=== PATIENT | female | born 1995 | race Caucasian/White ===

== ENCOUNTER 2019-02-01 20:04 | Emergency (ER) | payer MEDICAID ==
[~2019-02-01] VITALS: Ht 170.2 cm; Wt 86.0 kg
[2019-02-01 20:09] VITALS: BP 127/76
[2019-02-01] MEDS ORDERED: PENI500T2 PO (20:36)
[2019-02-01] MEDS ORDERED: IBUP-1984 PO (20:36)
[2019-02-01] MEDS ORDERED: traMADol 50MG tablet PO ONE (20:40)
== END 2019-02-01 20:47 | disposition home or self-care (01) ==
LOC: ER 20:04
DX: S02.5XXA Fracture of tooth (traumatic), initial encounter for closed fracture (principal); K04.7 Periapical abscess without sinus; Z90.49 Acquired absence of other specified parts of digestive tract; Z88.5 Allergy status to narcotic agent; Z87.442 Personal history of urinary calculi; X58.XXXA Exposure to other specified factors, initial encounter; Y93.89 Activity, other specified; Y92.89 Other specified places as the place of occurrence of the external cause; Y99.9 Unspecified external cause status
CPT/HCPCS: 99283

== ENCOUNTER 2021-06-25 21:25 | Emergency (ER) | payer MEDICAID ==
[~2021-06-25] VITALS: Ht 170.2 cm; Wt 90.9 kg
[~2021-06-25 21:25] MED LIST: NO HOME MEDS
[2021-06-26 03:01] LABS: URINE HCG NEGATIVE (NEG)
[2021-06-26 03:09] LABS: ALANINE AMINOTRANSFERASE 17 U/L (12-78); ALKALINE PHOSPHATASE 94 IU/L (46-116); ANION GAP 8 (8-16); ASPARTATE AMINO TRANSFERASE 16 U/L (10-37); BILIRUBIN,TOTAL 0.3 MG/DL (0.1-1.0); BLOOD UREA NITROGEN 11 MG/DL (7-18); BUN/CREATININE RATIO 16.7 (6.6-38.0); CALCIUM 9.2 MG/DL (8.5-10.1); CHLORIDE 104 MMOL/L (99-107); CREATININE 0.66 MG/DL (0.40-0.90); GLUCOSE 103 MG/DL (70-104); POTASSIUM 3.8 MMOL/L (3.5-5.1); SODIUM 138 MMOL/L (135-145); TOTAL CARBON DIOXIDE 26.5 MMOL/L (24-32); TOTAL PROTEIN 8.1 G/DL (6.4-8.2); eGFR > 90 ML/MIN
[2021-06-26 03:12] LABS: EOSINOPHILS # (AUTO) 0.1 X10'3 (0-0.9); MONOCYTES # (AUTO) 0.6 X10'3 (0-0.9); RED BLOOD COUNT 5.55 X10'6 (4.20-5.60)
[2021-06-26 03:14] LABS: BASOPHILS % (AUTO) 0.6 % (0-1); EOSINOPHILS % (AUTO) 0.9 % (0-6); HEMATOCRIT 35.2 % (35.0-45.0); HEMOGLOBIN 11.2 g/dl (12.0-16.0); LYMPHOCYTES % (AUTO) 17.4 % (21-51); MEAN CORPUSCULAR HEMOGLOBIN 20.1 PG (27.0-31.0); MEAN CORPUSCULAR HGB CONC 31.8 g/dL (33.0-36.5); MEAN CORPUSCULAR VOLUME 63.4 FL (78-98); MEAN PLATELET VOLUME 8.7 FL (7.4-10.4); MONOCYTES % (AUTO) 10.3 % (2-12); NEUTROPHILS # (AUTO) 4.1 X10'3 (1.8-7.7); NEUTROPHILS % (AUTO) 70.8 % (42-75); PLATELET COUNT 289 X10'3 (140-440); RED CELL DISTRIBUTION WIDTH 18.5 % (11.5-14.5); WHITE BLOOD COUNT 5.8 X10'3 (4.5-11.0)
[2021-06-26 03:56] LABS: ANISOCYTOSIS 2+; MICROCYTOSIS 2+; PLATELET ESTIMATE NORMAL
[2021-06-26 03:57] LABS: ELLIPTOCYTES 1+
[2021-06-26] MEDS ORDERED: CLIN300C63 PO (06:17)
[2021-06-26] MEDS ORDERED: clindamycin 150mg capsule PO ONE (06:20)
[2021-06-26 07:03] VITALS: BP 110/74
--- NOTE | 2021-06-26 15:46 | NUR ---
Patient called regarding rx not being sent to pharmacy. Patient requested to call in prescription to [facility] on [address]. Antibiotic prescriptions called in to pharmacist. patient aware.
== END 2021-06-26 07:04 | disposition home or self-care (01) ==
LOC: ER 21:30
DX: L03.221 Cellulitis of neck (principal); Z87.81 Personal history of (healed) traumatic fracture; Z86.14 Personal history of Methicillin resistant Staphylococcus aureus infection; Z88.5 Allergy status to narcotic agent; Z88.8 Allergy status to other drugs, medicaments and biological substances
CPT/HCPCS: 36415; 70486; 80053; 81025; 83605; 85008; 85025; 99284

== ENCOUNTER 2021-06-26 21:39 | Emergency (ER) | payer MEDICAID ==
[~2021-06-26] VITALS: Ht 170.2 cm; Wt 90.9 kg
[~2021-06-26 21:39] MED LIST changes: +CLIN300C63 PO
[2021-06-26 21:58] VITALS: BP 125/80
== END 2021-06-27 04:17 | disposition left against medical advice (07) ==
LOC: ER 21:40
DX: H60.12 Cellulitis of left external ear (principal); Z53.21 Procedure and treatment not carried out due to patient leaving prior to being seen by health care provider

== ENCOUNTER 2023-08-19 11:00 | Emergency (ER) | payer MEDICAID ==
[~2023-08-19] VITALS: Ht 170.2 cm; Wt 99.8 kg
[~2023-08-19 11:00] MED LIST changes: -CLIN300C63 PO; +NAPR-56 PO
[2023-08-19 11:01] VITALS: BP 123/76; PULSE 83; TEMP 97.9; O2SAT 99
[2023-08-19 12:40] LABS: URINE HCG NEGATIVE (NEG)
[2023-08-19 15:16] VITALS: RESP 18
== END 2023-08-19 15:18 | disposition home or self-care (01) ==
LOC: ER 11:01
DX: O03.9 Complete or unspecified spontaneous abortion without complication (principal); Z88.5 Allergy status to narcotic agent; Z79.899 Other long term (current) drug therapy; Z98.890 Other specified postprocedural states
CPT/HCPCS: 36415; 81025; 84702; 86900; 86901; 99283

== ENCOUNTER 2025-01-27 11:33 | Emergency (ER) | payer MEDICAID ==
[~2025-01-27] VITALS: Ht 168.9 cm; Wt 90.9 kg
[~2025-01-27 11:33] MED LIST changes: -NAPR-56 PO
[2025-01-27 11:35] VITALS: BP 115/70; PULSE 71; RESP 18; TEMP 97.9; O2SAT 100
--- NOTE | 2025-01-27 13:03 | Physician Documentation ---
History of Present Illness ~ Chief Complaint: Back Pain Stated Complaint: LOWER BACK PAIN Time Seen by MD: 12:38 Primary Medical Doctor: DEVAN HPI 29-year-old female who gave three months ago presents today with low back pain without any acute injury. States that the pain is primarily in the left lower region of her back denies any numbness tingling red flag symptoms fevers Medication Reconciliation Allergies: Coded Allergies: codeine (Unverified Allergy, Unknown, RASH, 08/04/23) hydrocodone (Verified Adverse Reaction, Unknown, VOMITTING, 08/04/23) Miscellaneous Medications Home Med List (No Home Medications), (Reported) Past Medical History Past Medical History: Extremity Fracture, MRSA Abscess Past Surgical History: appendectomy, tonsillectomy Alcohol Use: None Drug Use: none Lives with: Family Lives In: Home Occupation: student Review of Systems All Other Systems at this time: Reviewed and Negative ROS As stated above in the HPI, otherwise all systems are reviewed and negative. Physical Exam Physical Exam Vital Signs: Temperature: 97.9, Source: Temporal, Heart Rate: 71, Respiratory Rate: 18, BP: 115/70, Pulse Oximetry: 100, Weight: 90.910 Oxygen Flow Rate: 0 Physical Exam General: Alert, no apparent distress. Back: Tender to lumbar region left lower lumbar region via palpation Respiratory: Lungs clear, no respiratory distress. Chest: No accessory muscle use. Neurologic: Oriented x4. Psychiatric: Normal mood and affect. Skin: Normal color, warm and dry. No edema, no ecchymosis. Progress Results/Orders Results/Orders Completed Orders - JEFF ASHBY NP Ketorolac Trometh 30mg/Ml Vial (Toradol (01/27/25 12:55) Vital Signs 01/27/25 11:35 Temp 97.9 Pulse 71 Resp 18 B/P (MAP) 115/70 Pulse Ox 100 O2 Flow Rate 0 Medical Decision Making Additional information obtaine: old records Findings This patient presents with a suspected lumbar strain secondary to recovering from and living somewhat sedentary lifestyle while she takes care of her . Does not present with any red flag symptoms I am going to advise her to take ibuprofen at home Differential Dx:Considerations: Fracture, Musculoskeletal pain, Strain, Urinary tract infection Departure Disposition: HOME / SELF CARE / HOMELESS Impression: Primary Impression: Strain of lumbar region Discharge Instructions: Lumbosacral Strain, Back Exercises Additional Instructions: You can take ibuprofen for back pain while breast-feeding. If you continue to have symptoms recommend following up with your primary care for physical therapy referral Referrals: NO PRIMARY CARE PROVIDER (PCP) Education Educated: Patient Signature Scribe Signature: t Attestation: Scribed for Jeff Ashby Histopathologist by Jeff Massey NP . 01/27/25 13:07 JEFF ASHBY NP Jan 27, 2025 13:03
[2025-01-27] MEDS: ketorolac trometh 30MG/ML vial 30 MG/ML VIAL IM ONE (13:49)
== END 2025-01-27 13:53 | disposition home or self-care (01) ==
LOC: ER 11:33
DX: S39.012A Strain of muscle, fascia and tendon of lower back, initial encounter (principal); Z90.49 Acquired absence of other specified parts of digestive tract; Z88.5 Allergy status to narcotic agent; Z90.89 Acquired absence of other organs; X58.XXXA Exposure to other specified factors, initial encounter; Y93.89 Activity, other specified; Y92.89 Other specified places as the place of occurrence of the external cause; Y99.8 Other external cause status
CPT/HCPCS: 96372; 99283; J1885